=== PATIENT | male | born 1980 | race Caucasian/White ===

== ENCOUNTER 2020-11-14 22:50 | Emergency (ER) | payer OTHER, SELFPAY ==
--- NOTE | 2020-11-15 00:02 | ED_ITS ---
HPI - Wound/Laceration General Stated Complaint: finger lac Source: patient Mode of arrival: ambulatory Limitations: language barrier History of Present Illness HPI narrative: 40-year-old male with no significant past medical history presents with a avulsion laceration to the tip of his left thumb. He is unable to get the bleeding to stop and it has been several hours. He cut his finger with a knife. He does not report any other symptoms at this time. Onset (ago): hour(s) Extremity Location: left: hand (thumb) Place: home Patient tetanus UTD: No Context: accidental Associated symptoms: other (Bleeding) Treatments prior to arrival: bandage and tourniquet Related Data Home Medications Medication Instructions Recorded Confirmed ibuprofen 200 mg tablet 400 mg PO Q8H 03/03/20 03/03/20 Previous Rx's Medication Instructions Recorded omeprazole 20 mg tablet,delayed 20 mg PO DAILY 60 Days #60 tab 03/03/20 release Allergies Allergy/AdvReac Type Severity Reaction Status Date / Time No Known Allergies Allergy Verified 03/03/20 08:38 Review of Systems Review of Systems: Constitutional: No Fever, No Chills ENT/Mouth: No Ear Pain, No Hoarseness, No sore throat Eyes: No Eye Pain, No Swelling, No Redness, No Foreign Body Cardiovascular: No Chest Pain, No SOB Respiratory: No Cough, No Dyspnea Gastrointestinal: No Nausea, No Vomiting, No Diarrhea, No abdominal Pain Genitourinary: No Dysuria, No Hematuria Musculoskeletal: positive left thumb pain, No Myalgias, No Joint Swelling Skin: Positive left thumb laceration No rash Neuro: No Weakness, No Numbness, No Paresthesias, No Loss of Consciousness, No Dizziness, No Headache Psych: No Anxiety/Panic, No Depression Heme/Lymph: no easy bruising, no Lymphadenopathy Endocrine: No Polyuria, No Polydipsia Yes all other systems are reviewed and are negative [facility] Past Medical History Attestation statement: The following information was validated with the patient. Source: old records reviewed Medical History GERD (gastroesophageal reflux disease) Family History Family History Mother No problems noted. Father No problems noted. Physical Exam Vital Signs: Appearance: Alert. Oriented X3. No acute distress. Eyes: Pupils equal, round and reactive to light. ENT: Pharynx normal. Neck: Normal inspection. Neck supple. CVS: Normal heart rate and rhythm. Pulses normal. Respiratory: No respiratory distress. Breath sounds normal. Abdomen: Soft and nontender. Skin: Positive finger tip avulsion laceration to the left thumb. No nail bed involvement. Full range of motion, brisk capillary refill. Skin warm and dry. Normal skin color. Normal skin turgor. Extremities: No lower extremity edema. Neuro: No motor deficit. No sensory deficit. Course Course Course Narrative: 40-year-old male presents with avulsion laceration to the tip of his left thumb. Will order Tdap vaccine. Cleaned with Betadine cleanse, applied Surgicel and Steri-Strips to keep Surgicel in place. Patient does understand instructions and will follow-up in 3 days if needed. Patient verbalized understanding of and agrees plan of care discharge home. Procedures Laceration Laceration 1: Site: hand Side (If applicable): left (thumb) Size (cm): 0.5 Description: other (Avulsion) Depth: simple, single layer Pre-repair: wound explored and irrigated extensively Skin layer closed with: other (Surgicel and Steri-Strips) MDM - Wound/Laceration Differential Diagnosis Differential diagnosis: Likely avulsion of skin Medical Records Attestation: I reviewed the patient's medical records. Discharge Plan Discharge Clinical Impression: Laceration Patient Disposition: Home, Self-Care Instructions: Finger Laceration (ED), Skin Adhesive Care (ED), Steristrips (ED) Additional Instructions: Fue evaluado por laceraci?n en la punta del pulgar. Mantenga la herida limpia y seca. Mantenga el ap?sito en dowd lugar sudha 3 d?as. Actualizamos dowd vacuna Tdap hoy. Mike por elegir edu departamento de emergencias para dowd evaluaci?n. Carline un seguimiento con dowd m?dico de atenci?n primaria seg?n sea necesario. Regrese al departamento de emergencias por cualquier s?ntoma nuevo, preocupante o que empeore. You were evaluated for laceration to the tip of your thumb. Please keep the wound clean and dry. Keep the dressing in place for 3 days. We updated your Tdap vaccine today. Thank you for choosing this emergency department for evaluation. Please fo llow-up with primary care physician as needed. Return to the emergency department for any new, concerning, or worsening symptoms. Prescriptions: No Action ibuprofen [Advil] 200 mg tablet 400 mg PO Q8H RF: 0 omeprazole 20 mg tablet,delayed release (DR/EC) 20 mg PO DAILY 60 Days Qty: 60 RF: 0
[2020-11-15 00:16] VITALS: BP 183/113; PULSE 73; RESP 18; TEMP 36.6; O2SAT 98; BMI 27.2
[2020-11-15] MEDS: Diphth,Pertus(ACell),Tet Adult 0.5 ML SYRINGE IM (00:24)
== END 2020-11-15 00:38 | disposition home or self-care (01) ==
PROVIDERS: Emergency Provider Emergency Medicine
DX: S61.012A Laceration without foreign body of left thumb without damage to nail, initial encounter (principal); W26.0XXA Contact with knife, initial encounter; Y93.9 Activity, unspecified; Y92.030 Kitchen in apartment as the place of occurrence of the external cause; Y99.9 Unspecified external cause status
CPT/HCPCS: 12001; 90471; 90715; 99283; 99284